=== PATIENT | male | born 1970 | race African-American/Black ===

== ENCOUNTER 2018-09-12 11:16 | Emergency (ER) | payer OTHER ==
[~2018-09-12] VITALS: Ht 175.3 cm; Wt 71.7 kg
[2018-09-12] MEDS ORDERED: PROTONIX40 MG PO (15:02)
== END 2018-09-12 16:21 | disposition home or self-care (01) ==
LOC: ER 11:16
DX: K62.5 Hemorrhage of anus and rectum (principal)